=== PATIENT | male | born 1990 | race Caucasian/White ===

== ENCOUNTER 2017-03-19 10:58 | Emergency (ER) | payer SELFPAY ==
[2017-03-19 11:12] VITALS: BP 148/95
--- NOTE | 2017-03-19 11:56 | EDM.PDOC ---
ED HPI GENERAL MEDICAL PROBLEM - General Chief Complaint: ENT Problem Stated Complaint: NOSE PAIN Time Seen by Provider: 03/19/17 11:46 Source of Information: Reports: Patient History Limitations: Reports: No Limitations - History of Present Illness INITIAL COMMENTS - FREE TEXT/NARRATIVE: 26-year-old male presents for evaluation and treatment of a sore to the left near. Reports symptoms started on Sunday. He was seen at the [place], [place] ER on Sunday. He was given a shot of antibiotics and what sounds like a shot of steroids. He was prescribed oral antibiotics but has not yet started these. He has been doing warm compresses. States that he was told to come to the ER if he notices a white head. He appreciated a white area on the inside of the left nare and had a small amount of clear drainage from it. He reports that it is very tender. He states that he has not taken his temperature but felt warm on Sunday morning. Also had some chills on Sunday. No nausea or vomiting. Patient states he has not had any history of these. He is not diabetic. Does not work in the field that would likely require MRSA coverage. Nose Pain Score (Numeric/FACES): 8 - Related Data Allergies Allergy/AdvReac Type Severity Reaction Status Date / Time No Known Allergies Allergy Verified 03/19/17 11:05 Home Meds: Home Meds Acetaminophen/HYDROcodone [Cummings 325-5 MG] 1 tab PO Q6H #12 tablet 03/19/17 [Rx] Albuterol [Proair HFA] 2 puff INH ASDIRECTED PRN 03/19/17 [History] Hydrocodone/Acetaminophen [Hydrocodon-Acetaminophen 5-325] 1 tab PO Q6H PRN [History] Past Medical History Respiratory History: Reports: Asthma Social & Family History - Tobacco Use Smoking Status *Q: Current Every Day Smoker Years of Tobacco use: 16 Packs/Tins Daily: 1 - Recreational Drug Use Recreational Drug Use: No ED ROS ENT - Review of Systems Review Of Systems: See Below Constitutional: Reports: Fever, Chills HEENT: Reports: Nose Pain (left nare) GI/Abdominal: Denies: Nausea, Vomiting Skin: Reports: Erythema (left nare), Other (drainage left nare) ED EXAM, ENT - Physical Exam Exam: See Below Exam Limited By: No Limitations General Appearance: Alert, WD/WN, No Apparent Distress Nose: Normal Inspection Respiratory/Chest: No Respiratory Distress, Lungs Clear, Normal Breath Sounds Cardiovascular: Normal Peripheral Pulses, Regular Rate, Rhythm, No Murmur Psychiatric: Normal Affect, Normal Mood Skin: Warm, Dry, Increased Warmth (approximately 2cm erythematous, tender, area of cellulitis to the left nare with associated closed comodone to the left inner nare) Course - Vital Signs Last Recorded V/S: Last Vital Signs Temp 36.6 C 03/19/17 11:07 Pulse 76 03/19/17 11:07 Resp 18 03/19/17 11:07 BP 148/95 H 03/19/17 11:07 Pulse Ox 93 L 03/19/17 11:07 - Re-Assessments/Exams Free Text/Narrative Re-Assessment/Exam: 03/19/17 12:11 Rx for bactrim and cephalenxin was written by the miguel PALACIOS. Recommend taking the antibiotics. Warm compress. Medication given for pain relief. There is a small open are inside the nose causing a small amount of drainage. I do not feel I&D would provide an additional benefit at this time and should drain on its own. Discharge instructions as documented. Departure - Departure Time of Disposition: 12:11 Disposition: Home, Self-Care 01 Condition: good Clinical Impression: Cellulitis - Discharge Information Prescriptions: Acetaminophen/HYDROcodone [Cummings 325-5 MG] 1 tab PO Q6H #12 tablet Instructions: Cellulitis, Adult Referrals: Irineo Dillard PA-C [Primary Care Provider] - Forms: ED Department Discharge, Return to Work/School Form Additional Instructions: Fill antibiotics and start today. Take OTC ibuprofen 600mg PO every 6 hours for pain. Cummings 1-2 tabs PO every 4- 6 hours prn severe pain. Do not drive or operate machinery within 12 hours of taking norco. Cummings can be habit forming, take as few of these as needed to control you pain. Continue with warm compress. Do this 4-6 times a day for 10-15 minutes. Allow the area to open and drain. Follow-up with PCP if not better in 10 days. Please return to the ER should symptoms change or worsen.
== END 2017-03-19 12:23 | disposition home or self-care (01) ==
LOC: JD.ED 10:58
DX: J34.0 Abscess, furuncle and carbuncle of nose (principal); J45.909 Unspecified asthma, uncomplicated; F17.210 Nicotine dependence, cigarettes, uncomplicated
CPT/HCPCS: 99283

== ENCOUNTER 2019-01-21 18:47 | Emergency (ER) | payer OTHER ==
[2019-01-21 18:59] VITALS: BP 146/84
[2019-01-21] MEDS ORDERED: HYDROmorphone 1 MG/ML Syringe IVPUSH ONE (19:03)
[2019-01-21] MEDS ORDERED: Ondansetron 4 MG/2 ML SDV IVPUSH ONE (19:03)
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
[2019-01-21] MEDS ORDERED: Sodium Chloride 0.9% 1,000 ML IV SCH (19:15)
--- NOTE | 2019-01-22 06:42 | CR ---
Right shoulder: Three views of the right shoulder were obtained. Comparison: No previous right shoulder study. Glenohumeral and acromioclavicular joints appear unremarkable. No fracture, dislocation or other bony abnormality is seen. Impression: 1. No abnormality is appreciated on right shoulder exam. Diagnostic code #1
--- NOTE | 2019-01-22 06:42 | CR ---
Left shoulder: Three views of the left shoulder were obtained. Comparison: No prior shoulder study. Acromioclavicular and glenohumeral joints appear within normal limits. No fracture, dislocation or other bony abnormality is seen. Impression: 1. No abnormality is appreciated on left shoulder exam. Diagnostic code #1
--- NOTE | 2019-01-22 06:42 | CR ---
Right wrist: Four views of the left wrist were obtained. Comparison: No previous study. Joint spaces are preserved. No fracture, dislocation or other bony abnormality is seen. Impression: 1. No acute abnormality is appreciated on right wrist exam. Diagnostic code #1
== END 2019-01-21 20:33 | disposition home or self-care (01) ==
LOC: JD.ED 18:47
DX: S40.012A Contusion of left shoulder, initial encounter (principal); S60.221A Contusion of right hand, initial encounter; S80.212A Abrasion, left knee, initial encounter; S80.211A Abrasion, right knee, initial encounter; F17.210 Nicotine dependence, cigarettes, uncomplicated; J45.909 Unspecified asthma, uncomplicated; Z79.899 Other long term (current) drug therapy; V23.4XXA Motorcycle driver injured in collision with car, pick-up truck or van in traffic accident, initial encounter
CPT/HCPCS: 73030; 73110; 96361; 96374; 96375; 99285; J1170; J2405; J7040; 99284